=== PATIENT | female | born 2000 | race Caucasian/White ===

== ENCOUNTER 2020-02-24 00:42 | Emergency (ER) | payer BC ==
[~2020-02-24] VITALS: Ht 170.2 cm; Wt 65.8 kg
[2020-02-24 00:42] VITALS: BP_SYST 127
--- NOTE | 2020-02-24 00:46 | NUR ---
Patient to ER bed 6 to gown for evaluation. Side rails up.
--- NOTE | 2020-02-24 00:50 | NUR ---
ER Dr. Lisa at bedside examining patient.
--- NOTE | 2020-02-24 00:50 | NUR ---
Patient BIB by ALS/EMT. C/O Alcohol intoxication x today. Per reported, patient drinking alcohol -unknown how much that patient was consuming. Response to voice, confused, vomitting (at the scence twice), vss, place on manager monitoring and pulse ox.
[2020-02-24] MEDS ORDERED: NACL 0.9% 1,000 ML IV ONE (01:00)
[2020-02-24] MEDS ORDERED: PANTOPRAZOLE SODIUM 40 MG/VIAL (PROTONIX) IVP ONE (01:00)
[2020-02-24] MEDS ORDERED: ONDANSETRON HCL 4 MG/2 ML VIAL IVP ONE (01:00)
[2020-02-24] MEDS ORDERED: ONDANSETRON HCL 4 MG/2 ML VIAL ONE (01:02)
--- NOTE | 2020-02-24 01:14 | NUR ---
Per family reported, patient was drinking Tequila several glasses, tried to wake up and she could not, concerned and called 911.
[2020-02-24 01:36] LABS: BASOPHILS # (AUTO) 0.1 K/uL (0.0-0.2); BASOPHILS % (AUTO) 0.9 % (0.0-2.0); EOSINOPHILS % (AUTO) 0.6 % (0.0-4.0); HEMATOCRIT 39.7 % (36-48); HEMOGLOBIN 12.8 g/dL (12.0-16.0); LYMPHOCYTES # (AUTO) 2.9 K/uL (1.0-5.5); LYMPHOCYTES % (AUTO) 37.4 % (20.5-51.5); MEAN CORPUSCULAR HEMOGLOBIN 29 pg (27-31); MEAN CORPUSCULAR HGB CONC 32 % (32-36); MEAN CORPUSCULAR VOLUME 90 fL (79.0-98.0); MONOCYTES # (AUTO) 0.5 K/uL (0.0-1.0); MONOCYTES % (AUTO) 6.3 % (1.7-9.3); NEUTROPHILS # (AUTO) 4.2 K/uL (1.8-7.7); NEUTROPHILS % (AUTO) 54.8 % (40.0-70.0); PLATELET COUNT (AUTO) 269 K/uL (130-430); RED BLOOD CELL COUNT(AUTO) 4.43 MIL/uL (4.2-6.2); RED CELL DISTRIBUTION WIDTH 13.4 % (9.0-15.0); WHITE BLOOD COUNT (AUTO) 7.6 K/uL (4.8-10.8)
[2020-02-24 01:49] LABS: CALCIUM 8.7 mg/dL (8.4-11.0); CREATININE 0.78 mg/dL (0.55-1.30); POTASSIUM 3.5 mmol/L (3.5-5.1)
[2020-02-24 02:02] LABS: ALBUMIN 3.8 g/dL (3.4-4.8); TOTAL BILIRUBIN 0.3 mg/dL (0.0-1.0)
--- NOTE | 2020-02-24 02:16 | NUR ---
Spoke with patient's parent to update patient status.
--- NOTE | 2020-02-24 03:30 | NUR ---
Patient resting quietly. No acute distress noted. Vital signs within normal range.
[2020-02-24 06:17] VITALS: BP_SYST 121
--- NOTE | 2020-02-24 06:17 | NUR ---
Patient given written and verbal discharge instructions and verbalizes understanding. ER MD discussed with patient the results and treatment provided. Patient in stable condition. ID arm band removed. IV catheter removed intact and dressing applied, no active bleeding. No Rx given. Patient educated on pain management and to follow up with PMD. Pain Scale 0/10. Opportunity for questions provided and answered.
== END 2020-02-24 06:17 | disposition home or self-care (01) ==
LOC: SED 00:42
DX: F10.129 Alcohol abuse with intoxication, unspecified (principal); R40.4 Transient alteration of awareness; R11.2 Nausea with vomiting, unspecified; Y90.7 Blood alcohol level of 200-239 mg/100 ml
CPT/HCPCS: 36415; 80053; 85025; 96361; 96374; 96375; 99284; C9113; G0482; J2405; J7030